=== PATIENT | female | born 1985 | race Caucasian/White ===

== ENCOUNTER 2019-07-23 15:26 | Outpatient (CLI) | payer OTHER, BC ==
[2019-07-24 12:02] LABS: HEPATITIS C ANTIBODY NON-REACTIVE (NON-REACTIVE)
[2019-07-24 12:35] LABS: HEPATITIS B SURFACE ANTIGEN NON-REACTIVE (NON-REACTIVE)
[2019-07-24 13:47] LABS: HIV AG/AB 4TH GEN NON-REACTIVE (NON-REACTIVE)
== END 2019-07-23 15:27 | disposition home or self-care (01) ==
LOC: LAB 15:26
PROVIDERS: ATTEND Obstetrics & Gynecology
DX: Z11.3 Encounter for screening for infections with a predominantly sexual mode of transmission (principal)
CPT/HCPCS: 36415; 81599; 86592; 86803; 87340; 87389

== ENCOUNTER 2020-01-14 13:42 | Outpatient (CLI) | payer BC | END 2020-01-14 13:43 | disposition home or self-care (01) | LOC: COV 13:42 | PROVIDERS: ATTEND Family Medicine | DX: Z20.828 Contact with and (suspected) exposure to other viral communicable diseases (principal) ==

== ENCOUNTER 2020-09-29 08:00 | Outpatient (CLI) | payer BC ==
[2020-09-30 21:33] LABS: BACTERIAL VAGINOSIS DNA POSITIVE (NEGATIVE); CANDIDA GLABRATA DNA NEGATIVE (NEGATIVE); CANDIDA GROUP DNA NEGATIVE (NEGATIVE); CANDIDA KRUSEI DNA NEGATIVE (NEGATIVE); TRICHOMONAS VAGINALIS DNA NEGATIVE (NEGATIVE)
== END 2020-09-29 23:59 | disposition home or self-care (01) ==
LOC: LAB.WC 08:00
PROVIDERS: ATTEND Obstetrics & Gynecology
DX: N89.8 Other specified noninflammatory disorders of vagina (principal)
CPT/HCPCS: 87661; 87801

== ENCOUNTER 2020-10-21 11:31 | Outpatient (CLI) | payer BC ==
[2020-10-21 12:20] LABS: HGB - HEMOGLOBIN 12.7 g/dL (12.0-16.0); MEAN CORPUSCULAR HEMOGLOBIN 32.4 pg (27.0-31.0); MEAN CORPUSCULAR HGB CONC 34.3 g/dL (32.0-36.0); MEAN CORPUSCULAR VOLUME 94.4 fL (81.0-99.0); MEAN PLATELET VOLUME 10.3 fL (7.9-10.8); RED BLOOD COUNT 3.92 10^6/uL (4.20-5.40); RED CELL DISTRIBUTION WIDTH 11.9 % (12.0-15.0); WHITE BLOOD COUNT 7.5 x10^3/uL (4.8-10.8)
[2020-10-21 12:32] LABS: ALBUMIN 4.4 g/dL (3.2-5.5); ALBUMIN/GLOBULIN RATIO 1.5 (1.0-2.2); ALKALINE PHOSPHATASE 34 IU/L (42-121); ALT ALANINE AMINOTRANSFERASE 42 IU/L (10-60); AST ASPARTATE AMINOTRANSFERASE 34 IU/L (10-42); BILIRUBIN,TOTAL 0.7 mg/dL (0.2-1.0); BUN - BLOOD UREA NITROGEN 14 mg/dL (6-20); CALCIUM 8.8 mg/dL (8.5-10.3); CARBON DIOXIDE - CO2 26 mmol/L (21-32); CHLORIDE 102 mmol/L (101-111); CHOL/HDL RATIO 2.9 (<4.4); CHOLESTEROL 189 mg/dL; GFR - MDRD 63 (>89); GLUCOSE 96 mg/dL (70-100); HDL CHOLESTEROL 66 mg/dL; LDL CHOLESTEROL,CALCULATED 105 mg/dL; LDL/HDL RATIO 1.6 (<4.4); POTASSIUM 3.7 mmol/L (3.5-5.0); SODIUM 136 mmol/L (135-145); TOTAL PROTEIN 7.3 g/dL (6.7-8.2); TRIGLYCERIDES 92 mg/dL; VLDL CHOLESTEROL 18 mg/dL
[2020-10-21 12:42] LABS: THYROID STIMULATING HORMONE 0.55 uIU/mL (0.34-5.60)
[2020-10-21 12:50] LABS: ESTIMATED AVERAGE GLUCOSE 77 mg/dL (70-100); HEMOGLOBIN A1c% 4.3 % (4.27-6.07)
[2020-10-28 12:22] LABS: HEPATITIS C ANTIBODY NON-REACTIVE; HIV AG/AB 4TH GEN NON-REACTIVE
[2020-10-28 12:26] LABS: HEPATITIS B SURFACE ANTIGEN NON-REACTIVE
== END 2020-10-21 11:32 | disposition home or self-care (01) ==
LOC: LAB 11:31
PROVIDERS: ATTEND Obstetrics & Gynecology
DX: Z01.419 Encounter for gynecological examination (general) (routine) without abnormal findings (principal); Z11.3 Encounter for screening for infections with a predominantly sexual mode of transmission; Z13.1 Encounter for screening for diabetes mellitus; Z13.220 Encounter for screening for lipoid disorders; Z13.21 Encounter for screening for nutritional disorder
CPT/HCPCS: 36415; 80053; 80061; 81599; 82306; 83036; 83721; 84443; 85027; 86592; 86695; 86696; 86803; 87340; 87389

== ENCOUNTER 2021-04-01 07:50 | Emergency (ER) | payer BC ==
[2021-04-01 08:42] LABS: BASOPHILS % (AUTO) 0.1 %; EOSINOPHILS % (AUTO) 0.2 %; HCT - HEMATOCRIT 38.4 % (37.0-47.0); HGB - HEMOGLOBIN 13.1 g/dL (12.0-16.0); LYMPHOCYTES # (AUTO) 0.8 10^3/uL (1.5-3.5); LYMPHOCYTES % (AUTO) 7.7 %; MEAN CORPUSCULAR HEMOGLOBIN 31.7 pg (27.0-31.0); MEAN CORPUSCULAR HGB CONC 34.1 g/dL (32.0-36.0); MEAN PLATELET VOLUME 10.4 fL (7.9-10.8); MONOCYTES # (AUTO) 0.6 10^3/uL (0.0-1.0); MONOCYTES % (AUTO) 5.8 %; NEUTROPHILS % (AUTO) 85.8 %; PLT - PLATELET COUNT 225 10^3/uL (130-450); RED BLOOD COUNT 4.13 10^6/uL (4.20-5.40); RED CELL DISTRIBUTION WIDTH 11.3 % (12.0-15.0); WHITE BLOOD COUNT 10.5 x10^3/uL (4.8-10.8)
[2021-04-01 08:54] LABS: ALBUMIN 4.3 g/dL (3.2-5.5); ALBUMIN/GLOBULIN RATIO 1.3 (1.0-2.2); BILIRUBIN,TOTAL 1.3 mg/dL (0.2-1.0); CALCIUM 9.1 mg/dL (8.5-10.3); CREATININE 0.8 mg/dL (0.4-1.0); POTASSIUM 3.8 mmol/L (3.5-5.0); TOTAL PROTEIN 7.5 g/dL (6.7-8.2)
[2021-04-01 09:18] LABS: BILIRUBIN,URINE NEGATIVE (NEGATIVE); GLUCOSE, URINE (UA) NEGATIVE (NEGATIVE); KETONES,URINE (UA) NEGATIVE (NEGATIVE); LEUKOCYTE ESTERASE, URINE TRACE (NEGATIVE); NITRITE,URINE NEGATIVE (NEGATIVE); OCCULT BLOOD,URINE MODERATE (NEGATIVE); PH,URINE 5.5 PH (5.0-7.5); PROTEIN,URINE TRACE mg/dL (NEGATIVE); UROBILINOGEN,URINE 0.2 (NORMAL) E.U./dL (NORMAL)
[2021-04-01 09:22] LABS: CLARITY,URINE CLEAR (CLEAR)
[2021-04-01 09:28] LABS: HCG UR QUAL NEGATIVE
[2021-04-01] MEDS ORDERED: ONDANSETRON 4 MG/2 ML VIAL IVP STA (09:45)
[2021-04-01] MEDS ORDERED: SODIUM CHLORIDE 0.9% 1,000 ML IV STA (09:45)
[2021-04-01] MEDS ORDERED: KETOROLAC 30 MG/ML VIAL IVP STA (09:45)
[2021-04-01] MEDS ORDERED: MORPHINE 2 MG/ML CARPUJECT IVP STA (09:45)
[2021-04-01 09:50] LABS: BACTERIA,URINE Few /HPF (None Seen); RBC,URINE 0-5 /HPF (0-5); SQUAMOUS EPITHELIAL CELL,UR MOD Squamous (<= Few); WBC CLUMPS,URINE PRESENT
[2021-04-01] MEDS ORDERED: IOVERSOL 320 100 ML VIAL IVP ONE (10:01)
[2021-04-01] MEDS ORDERED: KETOROLAC 60 MG/2 ML VIAL IM STA (10:52)
--- NOTE | 2021-04-01 11:39 | CT Report ---
PROCEDURE: Abdomen/Pelvis WO INDICATIONS: flank pain TECHNIQUE: Noncontrast 5 mm thick sections acquired from the diaphragms to the symphysis. 5 mm coronal and sagi ttal reformats were then performed. For radiation dose reduction, the following was used: automated exposure control, adjustment of mA and/or kV according to patient size. COMPARISON: None. FINDINGS: Image quality: Excellent. ABDOMEN: Lung bases: Lung bases are clear. Heart size is normal. Bilateral breast implants are noted. Solid organs: Liver and spleen are normal in size. Gallbladder is unremarkable. Pancreas is normal in contours. No adrenal nodules. Perinephric fat stranding is seen along the right proximal ureter. A 4 mm calcification in the right pelvis (image 68 of series 3) appears to be within the right distal ureter, although a phlebolith cou ld appear similarly. There is no significant hydronephrosis. No left-sided renal or ureteral calculus is seen. Peritoneum and bowel: Unenhanced bowel loops demonstrate normal wall thickness and caliber. Normal a ppendix. No free fluid or air. Nodes and vessels: No retroperitoneal or mesenteric adenopathy by size criteria. Aorta and inferior vena cava are normal in caliber. Miscellaneous: No ventral hernias. PELVIS: Genitourinary: Bladder wall thickness is normal. The uterus is normal in size. The ovaries appear sy mmetric. Miscellaneous: No inguinal hernias or adenopathy. Bones: No suspicious bony lesions. No vertebral body compression fractures. IMPRESSION: Right distal ureteral 4 mm calcification with mild right periureteral fat stranding. No hydronephrosi s. Reviewed by: Yaya Lay MD on 04/01/2021 11:38 AM PDT Approved by: Yaya Lay MD on 04/01/2021 11:38 AM PDT Station ID: [id number]
[2021-04-01] MEDS ORDERED: SULFAMETH/TRIMETH DS 800/160 MG TABLET PO STA (12:18)
[2021-04-01] MEDS ORDERED: oxyCODONE 5 MG TABLET PO STA (12:25)
--- NOTE | 2021-04-01 12:28 | ED Physician Documentation ---
PD HPI ABD PAIN - Stated complaint Stated Complaint: BACK PX - Chief complaint Chief Complaint: Abd Pain - Additional information Additional information: Is 36-year-old female presenting with 2 days of right-sided flank pain. States pain has been intermittent for the last several days. Associated with some nausea without vomiting. Also endorses for increased urinary frequency but denies for dysuria or hematuria. Denies any history of kidney stones. Significant for , tubal ligation, allergic to penicillins. 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: Other : None HEENT: None Psych: None Musculoskeletal: None, Chronic back pain Derm: None - Past Surgical History Past Surgical History: Yes /MINER PLACER: Tubal ligation - Present Medications Home Medications: Ambulatory Orders Medication Instructions Recorded Confirmed Ondansetron Odt [Zofran] 4 mg TL Q6H PRN #10 tablet 04/01/21 Oxycodone HCl/Acetaminophen 1 each PO Q6HR 3 Days #10 tablet 04/01/21 [Percocet 5-325 mg Tablet] Sulfamethox/Trimeth 800/160 1 each PO BID #14 tablet 04/01/21 [Bactrim Ds 800/160] - Allergies Allergies/Adverse Reactions: Allergies Allergy/AdvReac Type Severity Reaction Status Date / Time Penicillins Allergy Hives Verified 04/01/21 08:12 - Social History Does the pt smoke?: Yes Smoking Status: Current every day smoker Does the pt drink ETOH?: Yes Does the pt have substance abuse?: No - Immunizations Immunizations are current?: Yes - POLST Patient has POLST: No PD ED PE NORMAL - General General: Alert and oriented X 3 - HEENT HEENT: Atraumatic, PERRL, Pharynx benign - Neck Neck: Supple, no meningeal sign, No JVD - Cardiac Cardiac: RRR, No murmur, No gallop, No rub - Respiratory Respiratory: No respiratory distress - Abdomen Abdomen: Normal bowel sounds, Soft, Non tender, Non distended - Female Female : Deferred - Rectal Rectal: Deferred - Derm Derm: Normal color, Warm and dry - Extremities Extremities: No deformity - Neuro Neuro: Alert and oriented X 3, 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 No: Tender to palpation - Back Back: CVA TTP left (Right) Results - Vitals Vitals: Vital Signs - 24 hr 04/01/21 08:07 Temperature 36.3 C L Heart Rate 120 H Respiratory 15 Rate Blood Pressure 137/85 H O2 Saturation 99 Oxygen O2 Source Room air - Labs Labs: Laboratory Tests 04/01/21 04/01/21 04/01/21 08:36 08:36 09:02 WBC 10.5 RBC 4.13 L Hgb 13.1 Hct 38.4 MCV 93.0 MCH 31.7 H MCHC 34.1 RDW 11.3 L Plt Count 225 MPV 10.4 Neut # (Auto) 9.0 H Lymph # (Auto) 0.8 L [place] # (Auto) 0.6 Eos # (Auto) 0.0 Baso # (Auto) 0.0 Absolute Nucleated RBC 0.00 Nucleated RBC % 0.0 Sodium 136 Potassium 3.8 Chloride 103 Carbon Dioxide 22 Anion Gap 11.0 BUN 10 Creatinine 0.8 Estimated GFR (MDRD) 82 L Glucose 121 H Calcium 9.1 Total Bilirubin 1.3 H AST 18 ALT 24 Alkaline Phosphatase 38 L Total Protein 7.5 Albumin 4.3 Globulin 3.2 Albumin/Globulin Ratio 1.3 Lipase 40 Urine Color DARK YELLOW Urine Clarity CLEAR Urine pH 5.5 Ur Specific [place] 1.020 Urine Protein TRACE Urine Glucose (UA) NEGATIVE Urine Ketones NEGATIVE Urine Occult Blood MODERATE H Urine Nitrite NEGATIVE Urine Bilirubin NEGATIVE Urine Urobilinogen 0.2 (NORMAL) Ur Leukocyte Esterase TRACE H Urine RBC 0-5 Urine WBC 11-25 H Urine WBC Clumps PRESENT Ur Squamous Epith Cells MOD Squamous H Urine Bacteria Few Ur Microscopic Review INDICATED Urine Culture Comments NOT INDICATED Urine HCG, Qual 04/01/21 09:02 WBC RBC Hgb Hct MCV MCH MCHC RDW Plt Count MPV Neut # (Auto) Lymph # (Auto) [place] # (Auto) Eos # (Auto) Baso # (Auto) Absolute Nucleated RBC Nucleated RBC % Sodium Potassium Chloride Carbon Dioxide Anion Gap BUN Creatinine Estimated GFR (MDRD) Glucose Calcium Total Bilirubin AST ALT Alkaline Phosphatase Total Protein Albumin Globulin Albumin/Globulin Ratio Lipase Urine Color Urine Clarity Urine pH Ur Specific [place] Urine Protein Urine Glucose (UA) Urine Ketones Urine Occult Blood Urine Nitrite Urine Bilirubin Urine Urobilinogen Ur Leukocyte Esterase Urine RBC Urine WBC Urine WBC Clumps Ur Squamous Epith Cells Urine Bacteria Ur Microscopic Review Urine Culture Comments Urine HCG, Qual NEGATIVE PD MEDICAL DECISION MAKING - ED course Complexity details: reviewed old records, reviewed results, d/w patient ED course: 6-year-old female presenting to the emergency department 2-day history of right- sided flank pain with some associated increased urinary frequency without dysuria or hematuria. Denies any history kidney stones. Afebrile, otherwise hemodynamically stable on arrival to the emergency department. Labs obtained within normal limits, specifically no leukocytosis or indications of renal insufficiency. Urine analysis did show some slight indication of infection in the form of an elevated number of white blood cells and white blood cell clumps as well as blood. I did obtain a noncontrast scan of her abdomen pelvis which showed a 4 mm right-sided ureterovesicular kidney stone. She was given medication for pain in the emergency department and was able to tolerate p.o. fluids. She was observed in the emergency department for several hours and reported some improvement in her pain. Additionally she was given a dose of Bactrim in the emergency department. She does report that she has family members who she will be staying with for the next few days. At this time I will discharge with an ongoing course of medication for pain as well as antibiotics and refer her to [facility] urology for careful follow-up. She was encouraged to return to the emergency department for any new or worsening symptoms. Departure - Departure Disposition: 01 Home, Self Care Clinical Impression: Kidney stone on right side, Urine leukocytes Condition: Fair Instructions: Kidney Stones, ED Stone Renal W Colic Follow-Up: [facility] [Provider Group] Felicity Ashford MD [Provider Admit Priv/Credential] - Prescriptions: Oxycodone HCl/Acetaminophen [Percocet 5-325 mg Tablet] 1 each PO Q6HR 3 Days #10 tablet Sulfamethox/Trimeth 800/160 [Bactrim Ds 800/160] 1 each PO BID #14 tablet Ondansetron Odt [Zofran] 4 mg TL Q6H PRN #10 tablet PRN Reason: Nausea / Vomiting Comments: Thank you for allowing us to care for you today at [facility]. Today you were diagnosed with a 4 mm right-sided kidney stone. This kidney stone is very likely to pass on its own in the next few days. Of concern you did have some indications of possible infection in your urine. Given that you are also having increased urination I would like you to begin a course of oral antibiotics. I have also included contact information in this discharge packet for [facility] urology. Please follow-up with them as well as with your primary care doctor as soon as possible. If it anytime you have any new or worsening symptoms, particularly if you develop any fever, worsening pain, intractable nausea, vomiting, have any sahhbaz in your urine or find yourself unable to urinate please return to the emergency department immediately for further evaluation and treatment.
[2021-04-01 12:30] VITALS: BP 113/72
== END 2021-04-01 12:58 | disposition home or self-care (01) ==
LOC: ED 07:50
DX: N20.0 Calculus of kidney (principal); R82.998 Other abnormal findings in urine; F17.200 Nicotine dependence, unspecified, uncomplicated
CPT/HCPCS: 36415; 74176; 80053; 81001; 81025; 83690; 85025; 99283; 99284; A9270; 81003; 87086

== ENCOUNTER 2022-02-25 11:43 | Outpatient (CLI) | payer OTHER | END 2022-02-25 11:44 | disposition critical access hospital (66) | LOC: EMS 11:43 | DX: R00.0 Tachycardia, unspecified (principal); R06.02 Shortness of breath; R20.2 Paresthesia of skin; R61 Generalized hyperhidrosis; F41.9 Anxiety disorder, unspecified | CPT/HCPCS: A0425; A0429 ==

== ENCOUNTER 2022-02-25 12:06 | Emergency (ER) | payer OTHER ==
[2022-02-25 13:08] LABS: ALBUMIN 4.6 g/dL (3.2-5.5); ALBUMIN/GLOBULIN RATIO 1.6 (1.0-2.2); BILIRUBIN,TOTAL 0.7 mg/dL (0.2-1.0); CALCIUM 9.3 mg/dL (8.5-10.3); CREATININE 0.8 mg/dL (0.4-1.0); TOTAL PROTEIN 7.4 g/dL (6.7-8.2)
[2022-02-25 13:22] LABS: BASOPHILS % (AUTO) 0.4 %; EOSINOPHILS # (AUTO) 0.1 10^3/uL (0.0-0.7); HCT - HEMATOCRIT 39.4 % (37.0-47.0); HGB - HEMOGLOBIN 13.6 g/dL (12.0-16.0); LYMPHOCYTES # (AUTO) 1.3 10^3/uL (1.5-3.5); LYMPHOCYTES % (AUTO) 16.8 %; MEAN CORPUSCULAR HEMOGLOBIN 33.2 pg (27.0-31.0); MEAN CORPUSCULAR HGB CONC 34.5 g/dL (32.0-36.0); MEAN CORPUSCULAR VOLUME 96.1 fL (81.0-99.0); MEAN PLATELET VOLUME 10.3 fL (7.9-10.8); MONOCYTES # (AUTO) 0.5 10^3/uL (0.0-1.0); MONOCYTES % (AUTO) 6.7 %; NEUTROPHILS # (AUTO) 5.7 10^3/uL (1.5-6.6); NEUTROPHILS % (AUTO) 74.7 %; PLT - PLATELET COUNT 273 10^3/uL (130-450); RED CELL DISTRIBUTION WIDTH 11.8 % (12.0-15.0); WHITE BLOOD COUNT 7.6 x10^3/uL (4.8-10.8)
--- NOTE | 2022-02-25 13:53 | ED Physician Documentation ---
History of Present Illness - Stated complaint Stated Complaint: L ARM NUMBESS - Chief complaint Chief Complaint: Neuro - History obtained from History obtained from: Patient - Additonal information Additional information: Patient is a 37-year-old female presenting for evaluation of paresthesia in the left arm that started while she was at work.She was typing at a computer at the time. She went outside to see if her symptoms would improve but then started feeling panicky and feeling her heart racing. She reports a similar episode a few weeks ago while she was bowling that improved after a few hours. She denies motor weakness of the extremity. She denies neck pain. She denies recent trauma. She denies chest pain. Nothing makes her symptoms better or worse. She denies recent illness.She continues to feel paresthesia inside the arm which involves the whole arm and hand. Review of Systems Constitutional: denies: Fever Nose: denies: Congestion Cardiac: denies: Chest pain / pressure Respiratory: denies: Dyspnea GI: denies: Abdominal Pain : denies: Dysuria Musculoskeletal: denies: Extremity pain Neurologic: reports: Numbness. denies: Focal weakness, Headache PD PAST MEDICAL HISTORY - Past Medical History Cardiovascular: None Respiratory: None Neuro: None Endocrine/Autoimmune: None GI: None DIRECTOR INTERNAL AUDIT: Other : None HEENT: None Psych: None Musculoskeletal: None, Chronic back pain Derm: None - Past Surgical History Past Surgical History: Yes /DIRECTOR INTERNAL AUDIT: Tubal ligation - Present Medications Home Medications: Ambulatory Orders Medication Instructions Recorded Confirmed Ondansetron Odt [Zofran] 4 mg TL Q6H PRN #10 tablet 04/01/21 Oxycodone HCl/Acetaminophen 1 each PO Q6HR 3 Days #10 tablet 04/01/21 [Percocet 5-325 mg Tablet] Sulfamethox/Trimeth 800/160 1 each PO BID #14 tablet 04/01/21 [Bactrim Ds 800/160] - Allergies Allergies/Adverse Reactions: Allergies Allergy/AdvReac Type Severity Reaction Status Date / Time Penicillins Allergy Hives Verified 04/01/21 08:12 - Social History Does the pt smoke?: Yes Smoking Status: Current every day smoker Does the pt drink ETOH?: Yes Does the pt have substance abuse?: No - Immunizations Immunizations are current?: Yes - POLST Patient has POLST: No PD ED PE NORMAL - General General: Alert and oriented X 3, No acute distress, Well developed/nourished - HEENT HEENT: Atraumatic, Moist mucous membranes - Neck Neck: Supple, no meningeal sign, No bony TTP - Cardiac Cardiac: RRR, Strong equal pulses - Respiratory Respiratory: No respiratory distress, Clear bilaterally - Abdomen Abdomen: Soft, Non tender, Non distended - Back Back: No spinal TTP - Derm Derm: Warm and dry, No rash - Extremities Extremities: No deformity, No tenderness to palpate, Normal ROM s pain, No edema - Neuro Neuro: Alert and oriented X 3, liaison engineer 2-12 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, No motor deficit, No sensory deficit (Two-point discrimination is intact), Other (Normal strength with shoulder shrug; Worm Packer strength, extension and flexion at elbow; Normal [id number] and rapid alternating movements bilaterally) Results - Vitals Vitals: Vital Signs - 24 hr 02/25/22 02/25/22 02/25/22 12:28 14:33 15:00 Temperature 36.5 C Heart Rate 89 85 76 Respiratory 18 16 16 Rate Blood Pressure 127/84 H 97/65 100/58 L O2 Saturation 99 100 100 Oxygen O2 Source Room air - EKG (time done) 1248 Rate: Rate (enter#) (76) Rhythm: NSR Ischemia: No: ST elevation c/w ischemia - Labs Labs: Laboratory Tests 02/25/22 02/25/22 02/25/22 12:49 12:49 12:49 WBC 7.6 RBC 4.10 L Hgb 13.6 Hct 39.4 MCV 96.1 MCH 33.2 H MCHC 34.5 RDW 11.8 L Plt Count 273 MPV 10.3 Neut # (Auto) 5.7 Lymph # (Auto) 1.3 L [place] # (Auto) 0.5 Eos # (Auto) 0.1 Baso # (Auto) 0.0 Absolute Nucleated RBC 0.00 Nucleated RBC % 0.0 Sodium 138 Potassium 4.0 Chloride 103 Carbon Dioxide 24 Anion Gap 11.0 BUN 12 Creatinine 0.8 Estimated GFR (MDRD) 81 L Glucose 100 Calcium 9.3 Magnesium 2.0 Total Bilirubin 0.7 AST 55 H ALT 70 H Alkaline Phosphatase 41 L Troponin I High Sens < 2.3 L Total Protein 7.4 Albumin 4.6 Globulin 2.8 Albumin/Globulin Ratio 1.6 PD MEDICAL DECISION MAKING - ED course Complexity details: reviewed results, re-evaluated patient ED course: Patient presenting for evaluation of paresthesia to the left arm. EKG in sinus rhythm. Labs reviewed without significant findings including high-sensitivity troponin. Patient has no motor findings on exam to suggest stroke. She additionally has no risk factors for stroke. Patient's sensation appears grossly intact including with two-point discrimination. She did feel better while in the emergency department and counseled on concerning symptoms to return for. I also encouraged close follow-up with her primary care doctor. Departure - Departure Disposition: 01 Home, Self Care Clinical Impression: Arm paresthesia, left Condition: Stable Instructions: ED Paraesthesias Comments: You were evaluated for an abnormal sensation in your left arm. You have normal strength in the arm and sensation appears to overall be normal.At this time I do not believe that your symptoms are From a stroke. Your EKG also shows a normal rhythm And your heart marker does not show signs of a heart attack.Please follow-up with your primary care doctor as you may need further testing.If you have any worsening symptoms such as weakness in your arm, difficulty in doing c ertain activities or any concerns please return to the emergency department. Forms: Activity restrictions Discharge Date/Time: 02/25/22 15:09
[2022-02-25 15:04] VITALS: BP 100/58
== END 2022-02-25 15:09 | disposition home or self-care (01) ==
LOC: EDUNIT# → ED 12:06
DX: R20.2 Paresthesia of skin (principal); F17.200 Nicotine dependence, unspecified, uncomplicated
CPT/HCPCS: 36415; 80053; 83735; 84484; 85025; 93005; 99282; 99284

== ENCOUNTER 2022-08-09 16:46 | Outpatient (CLI) | payer OTHER ==
--- NOTE | 2022-08-10 10:18 | Ultrasound Report ---
PROCEDURE: Head or Neck Soft Tissue INDICATIONS: ENLARGED THYROID TECHNIQUE: Real-time scanning was performed of the thyroid gland, with image documentation. COMPARISON: None FINDINGS: Right: Thyroid lobe measures 5.0 x 1.5 x 2.1 cm, and is homogeneous in echotexture. Left: Thyroid lobe measures 4.9 x 1.7 x 1.3 cm, and is homogenous in echotexture. Isthmus: 0.3 cm thick. A 0.3 cm cyst is seen in the left thyroid lobe. No suspicious thyroid nodule. IMPRESSION: Thyroid ultrasound is within normal limits. ACR TI-RADS definitions and recommendations: TI-RADS 1 (benign): 0 points. FNA not needed. TI-RADS 2 (not suspicious): 2 points. FNA not needed. TI-RADS 3 (mildly suspicious): 3 points. "FNA if 2.5 cm or larger, follow up if 1.5 cm or larger (at 1, 3, and 5 years). TI-RADS 4 (moderately suspicious): 4-6 points. "FNA if 1.5 cm or larger, follow up if 1 cm or larger (at 1, 2, 3, and 5 years). TI-RADS 5 (highly suspicious): 7 points or more. "FNA if 1 cm or larger, follow up if 0.5 cm or larger (every year for 5 years). Reviewed by: Yaya Lay MD on 08/10/2022 10:17 AM PDT Approved by: Yaya Lay MD on 08/10/2022 10:17 AM PDT Station ID: [id number]
== END 2022-08-09 16:47 | disposition home or self-care (01) ==
LOC: DI 16:46
PROVIDERS: ATTEND Physician Assistant
DX: E04.9 Nontoxic goiter, unspecified (principal)